=== PATIENT | female | born 1965 | race Two or more races ===

== ENCOUNTER 2017-08-25 06:20 | Emergency (ER) | payer MEDICAID ==
[~2017-08-25] VITALS: Ht 147.3 cm; Wt 49.7 kg
[2017-08-25 07:24] VITALS: BP 109/58
== END 2017-08-25 07:55 | disposition home or self-care (01) ==
LOC: ED 06:20
DX: M54.41 Lumbago with sciatica, right side (principal)
CPT/HCPCS: J3010; J7512; Q0162